=== PATIENT | female | born 1990 | race Hispanic/Latino ===

== ENCOUNTER → 2022-01-12 18:45 | Outpatient (ROUT) | payer OTHER, SELFPAY | PROVIDERS: Visit Provider Nurse Practitioner Obstetrics & Gynecology | DX: Z34.90 Encounter for supervision of normal pregnancy, unspecified, unspecified trimester (principal); Z36.85 Encounter for antenatal screening for Streptococcus B; Z3A.36 36 weeks gestation of pregnancy | CPT/HCPCS: 87081 ==

== ENCOUNTER 2022-01-28 18:45 | Inpatient (IN) | payer OTHER, SELFPAY ==
--- NOTE | 2022-01-28 19:21 | PM.OBHP.1 ---
OB HPI Date/Time Date of admission: 01/28/22 Date Patient Seen: 01/28/22 Time Patient Seen: 19:21 History of Present Condition Chief complaint: Labor : 1 Para: 0 Estimated Date of Delivery: 02/05/22 Estimated Gestational Age (weeks): 38.6 Narrative: Dora Boswell is a 31 year old female @ 38wks 6days by LMP and 11wk US who presents for evaluation of PROM. Awoke this morning to leaking clear fluid that has continued to leak all day today. has noticed irregular mild cramping that increases with walking throughout the day, but has not progressed significantly. Does not desire active management of PROM until 24 hours. Was seen in clinic today with a reactive NST and counseling on options provided. Uncomplicated PN care with CNM. Planning epidural. Partner present and supportive. Comments: VS: HR 119/63mmHg, HR 81bpm, RR 18/min, T 36.3C Temporal History of Present care: good care, initiated at week # (11), number of visits (7) and pounds weight gain (41) Dating criteria: LMP confirmed by 1st trimester US Ultrasounds: normal 1st trimester US and normal mid trimester US Obstetrical complications: none Medical complications: none Preadmission Labs Blood type: O (+) positive -: Antibody screen: negative, GBS status: negative, HBsAG: negative, HIV: negative and RPR/VDLR: negative -: Chlamydia screen: not detected and Gonorrhea screen: not detected -: Rubella: immune and Varicella: immune HCT: 36.4 HCAB: reactive 3 hr GTT: 1 hr (160), 2 hr (132) and 3 hr (96) Fasting blood glucose: 93 Evaluation Evaluation Baseline heart rate: 135 Variability: Moderate (11-25) monitor accelerations: Absent Monitor Decelerations: Absent Contraction Frequency (minutes): 0 Comments: CE deferred- not in labor FHR tracing initially entered under incorrect MRN, reviewed on paper, not in electronic record PFSH Medical History (Updated 01/28/22 @ 19:51 by Daisy Cordova CNM) Obesity affecting Family History (Updated 01/28/22 @ 19:34 by Daisy Cordova CNM) Father Diabetes mellitus Meds Home Medications and Allergies Home Medications Medication Instructions Recorded Confirmed Type No Known Home Medications 01/28/22 01/28/22 History Review of Systems Review of Systems ROS: Yes All systems reviewed with the patient and are negative except as otherwise documented OB Exam Resp Effort & Inspection: normal respiratory effort Auscultation: clear to auscultation bilaterally Cardio Rate: regular rate Rhythm: regular rhythm Heart Sounds: S1 normal and S2 normal Presentation: vertex Amniotic Fluid: clear Assessment and Plan Assessment and Plan Assessment and Plan narrative: Term Nullipara PROM x 12 hours without sx of infection No indication for GBS prophylaxis Cat I FHR Time Spent with Patient Total time spent with greater than 50% in coordination of care (as documented) at patient's floor/unit and/or counseling patient:: 15-24 minutes
[2022-01-28 20:42] LABS: COVID19 -Nasal RAPID Negative (Negative)
[2022-01-28 20:57] LABS: Add Manual Diff / Slide Review NO; Basophils Absolute Auto 0 /uL (0-100); Basophils Percent Auto 0.2 % (0-2); Eosinophils Absolute Auto 200 /uL (0-450); Eosinophils Percent Auto 2.5 % (2-4); Hematocrit 33.6 % (36-46); Hemoglobin 11.3 g/dL (12.0-16.0); Lymphocytes Absolute Auto 1900 /uL (1100-4500); Lymphocytes Percent Auto 22.3 % (25-40); Mean Corpuscular HGB Conc 33.7 % (30-36); Mean Corpuscular Hemoglobin 30.9 PG (26-34); Mean Corpuscular Volume 91.5 fL (80-100); Monocytes Absolute Auto 900 /uL (0-900); Monocytes Percent Auto 10.3 % (3-14); Neutrophils Absolute Auto 5600 /uL (1500-7000); Neutrophils Percent Auto 64.7 % (50-75); Platelet Count 293 X10^3/uL (150-400); Red Blood Cell Count 3.68 X10^6/uL (4.0-5.2); Red Cell Distribution Width 15.3 % (11.6-14.8); White Blood Cell Count 8.7 X10^3/uL (4.5-11.0)
[2022-01-28 21:10] VITALS: BP 119/63
[2022-01-29] MEDS: LACTATED RINGERS 1,000 ML 100 ML IV ×4 (00:13→12:11)
[2022-01-29] MEDS: ONDANSETRON 4 MG/2 ML INJ IV ×3 (01:41→14:43)
--- NOTE | 2022-01-29 04:48 | PM.OBPNLAB ---
Date/Time Date Patient Seen: 01/29/22 Time Patient Seen: 04:00 Pain Control Pain control: epidural Comments: Called in by RN ofr 2-3 minute prolonged that had resolved at time of call. CNM arrived to patient on hands and knees with IVFB running. Feeling slight discomfort with contractions and using PCEA. VS: BP 116/67, HR 65bpm, T 35.9C Temporal Pelvic Exam Dilation (cm): 8 Effacement (%): 90 station: -2 Amniotic membrane status: Leaking Comments: OP presentation Contractions Contractions on admission: irregular Monitor mode: External Pitocin rate (mU/min): 0 Contraction frequency (min): 1 Contraction duration (min): 1 Contraction intensity: Moderate Status status: Category ll Heart Rate Baseline: 115 Monitor Accelerations: Present Monitor Decelerations: Variable Monitor Variability: Moderate Assessment and Plan Assessment: active labor Plan: continuous present management Comments: Encourage frequent position changed with peanut ball and exaggerated Sim's. Reassess in 2 hours or sooner, PRN.
[2022-01-29] MEDS: FENT 2MCG/ML BUPIV 0.125% EPI 200 MCG/100 ML PLAST..BAG 12 MCG EPIDURAL ×2 (06:35→13:41)
--- NOTE | 2022-01-29 07:55 | PM.OBPNLAB ---
Date/Time Date Patient Seen: 01/29/22 Time Patient Seen: 07:45 Pain Control Pain control: tolerating well (recently boplused by anesthesia) Comments: VS: BP 132/74, HR 69bpm, T 36.4C Temporal Pelvic Exam Dilation (cm): 8 Effacement (%): 90 station: -2 Amniotic membrane status: Leaking Contractions Monitor mode: External Pitocin rate (mU/min): 0 Contraction frequency (min): 3 Contraction duration (min): 1 Contraction intensity: Moderate Status status: Category ll (overall reassuring) Heart Rate Baseline: 115 Monitor Accelerations: Present Monitor Decelerations: Variable (occasional) Monitor Variability: Moderate Assessment and Plan Assessment: active labor (stalled at 8cm) Plan: begin patient augmentation Comments: Recommend pitocin augmentation since contractions have spaced, pt agrees. Notified OB back-up of slowed progress @ 8cm with OP presentation and Cat II FHR, though overall reassuring. Will reassess in 2-4 hours or sooner, PRN.
[2022-01-29] MEDS: OXYTOCIN PREMIX 30 UNIT/500 ML PLAST..BAG IV (07:57)
[2022-01-29] MEDS: fentaNYL 100 MCG/2 ML INJ IV (09:21)
--- NOTE | 2022-01-29 09:52 | PM.OBPNLAB ---
Date/Time Date Patient Seen: 01/29/22 Time Patient Seen: 09:15 Pain Control Pain control: epidural (Working with anesthesia with incomplete relief) Comments: Patient is frustrated with labor and inadequate pain relief. Anesthesia has administered second epidural bolus and we are waiting to see if it should be replaced. Patient is requesting a primary . Pelvic Exam Dilation (cm): 9 Effacement (%): 90 station: -1 Amniotic membrane status: Leaking Comments: Small change noted. IUPC placed. Contractions Contractions on admission: irregular Monitor mode: External Pitocin rate (mU/min): 3 Contraction frequency (min): 4 Contraction duration (min): 1 Contraction pattern: Irregular Contraction intensity: Moderate Status status: Category ll (overall reassuring) Heart Rate Baseline: 120 Monitor Accelerations: Present Monitor Decelerations: Variable Monitor Variability: Moderate Assessment and Plan Assessment: active labor Plan: (elective) Comments: Counseled patient on slow progress with malpresentation (OP). Explained that neither she nor baby have given an indication for a primary so this would be elective. Patient agrees and [facility] was consulted. Explained that there is a more urgent ahead of her and it will be a few hours. Patient agrees to continue pitocin and recheck prior to availability of OR for .
--- NOTE | 2022-01-29 13:49 | PM.OBPNLAB ---
Date/Time Date Patient Seen: 01/29/22 Time Patient Seen: 13:49 Pain Control Pain control: epidural (replaced and providing adequate relief) Comments: Patient has been laboring more comfortably with her epidural replaced. Was able to sleep for 2 hours. Met with after requesting an elective primary and agreed, but told her OR availability would be several hours and encouraged her to continue pitocin to adequate contraction pattern and patient agreed. Pelvic Exam Dilation (cm): 10 Effacement (%): 100 station: -1 Amniotic membrane status: Leaking Contractions Date/Time contractions began: When IUPC was initiated, initial MVUs were 90. MVUs adequate since 1230 when they measured 215. Monitor mode: Internal (IUPC) Pitocin rate (mU/min): 15 Contraction frequency (min): 2 Contraction duration (min): 1 Contraction pattern: Regular Contraction intensity: Moderate Intrauterine tone measurement: 230 Status status: Category ll (overall reassuring) Heart Rate Baseline: 135 Monitor Accelerations: Present Monitor Decelerations: Variable Monitor Variability: Moderate Assessment and Plan Assessment: active labor Comments: Counseled patient that an urgent was just called for another patient and she will need to wait a few more hours. Patient is agreeable to sitting in high patricio's and laboring down, trying for descent while waiting.
[2022-01-29] MEDS: CALCIUM CARBONATE 500 MG TAB 1000 MG PO (14:42)
--- NOTE | 2022-01-29 16:36 | PM.OBPRVD ---
Labor & Delivery Delivery date: 01/29/22 Cervical ripening method: none Induction method: none Delivery augmentation: pitocin Delivery monitor: external FHT and internal uterine Route of delivery: Episiotomy description: None L&D Laceration Description: None Quantitative Blood Loss: 100 Anesthesia Type: Epidural Narrative: Began pushing from C/C/-1. Maloney and IUPC were discontinued shortly after initiation of pushing. Patient pushed effectively and made slow, but steady descent. was notified of progress and likely vaginal . RTC was called to standby for Cat II FHR. NSVB of a vigorous baby girl in SANDI position with a compound left hand manually reduced. There was no nuchal cord and the shoulders delivered easily. was placed on maternal abdomen for drying and skin to skin. Remaining 30 units of Pitocin in 500mL LR was increased to 270mL/hr for AMTSL. After cessation of pulsation, the cord was double clamped by CNM and cut by FOB. Cord blood sample was collected. Gentle cord traction led to spontaneous, Schultze delivery of an apparently intact placenta, membranes and 3VC. Fundus immediately firm and bleeding minimal. Straight catheter was performed for 100mL urine. Inspection of vagina and perineum: intact. QBL 100mL. Both mother and baby stable and skin to skin as I left the room. Baby 1: Infant gender: Female Presentation: vertex Position: Left Occiput Anterior Placenta delivery description: Spontaneous Cord Vessel Description: 3 Vessels score (1 min): 9 score (5 min): 9 weight: 2.982 kg Plan for aftercare: Routine care
[2022-01-29] MEDS: KETOROLAC 30 MG/ML VIAL IV (17:40)
[2022-01-30] MEDS: IBUPROFEN 600 MG TABLET PO ×2 (00:43→08:26)
--- NOTE | 2022-01-30 07:11 | P.DS_ITS ---
Discharge Providers Provider Date of admission: 01/28/22 18:45 Discharge Date: 01/30/22 Consults: 01/30/22 16:34 Consult to [facility] Routine Comment: Discharge provider: Daisy Cordova CNM Summary Hospital Course Date Patient Seen: 01/30/22 Time Patient Seen: 07:12 Diagnoses: Hospital Course: PPD1 s/p NSVB with no lacerations. Patient is voiding, ambulating and breasfeed ing independently. Tolerating a general diet. Vaginal bleeding is light, without clots. Pain is well controlled with PO medication. Feeling ready for discharge to home today. Peripartum Data Infant Delivery Method: Natural Vaginal Laceration Description: None Episiotomy description: None complications: none [place] 1: Gender: Female Disposition of : home Discharge Diagnosis (1) Encounter for full-term uncomplicated delivery: Status: Acute Status at Discharge Cognitive/behavioral status at discharge: oriented and calm Time Spent with Patient Time attestation: Total time spent providing and/or coordinating discharge services: Objective Labs Result Diagrams: 01/28/22 19:30 Exam Vital Signs (past 8 hours): BP 118/65mmHg, HR 88bpm, RR 18/min, T 97.3F Temporal, SpO2 99% on RA Other: Fundus firm @ u, lochia scant, minimal perineal edema Discharge Plan Discharge Plan Patient Disposition: Home Discharge orders & Medications Prescriptions: New ibuprofen 600 mg Tablet 600 mg PO Q6HR PRN (Reason: Pain, Mild (1-3)) 14 Days Qty: 40 0RF Follow up/Referrals: Daisy Cordova CNM [[facility]] - (Follow-up by Telehealth 02/14/22 @ 0840am Follow-up in office 03/12/22 @ 1245pm) Diet/Activity/Treatments Diet: Diet as Tolerated and Regular Activity: pelvic rest x 6 weeks Skin/Wound/Dressing Care Report to your healthcare provider any signs of infection, such as:: chills, fe wade, increased pain, unusual drainage and unusual redness Visit Report/Discharge Packet Instructions: DI for Depression
== END 2022-01-30 13:30 | disposition home or self-care (01) | DRG 807 ==
PROVIDERS: Admitting Provider Nurse Practitioner Obstetrics & Gynecology; Referring Provider Nurse Practitioner Obstetrics & Gynecology; Visit Provider Nurse Practitioner Obstetrics & Gynecology
DX: O42.02 Full-term premature rupture of membranes, onset of labor within 24 hours of rupture (principal); Z37.0 Single live birth; Z3A.38 38 weeks gestation of pregnancy; O76 Abnormality in fetal heart rate and rhythm complicating labor and delivery; O32.2XX0 Maternal care for transverse and oblique lie, not applicable or unspecified; Z20.822 Contact with and (suspected) exposure to COVID-19
CPT/HCPCS: 00670; 01967; 36415; 59050; 85025; 86850; 86900; 86901; 87635; C9803; G0379; J1885; J2405; J2590; J3010